=== PATIENT | male | born 1985 | race African-American/Black ===

== ENCOUNTER → 2021-11-22 | Outpatient (CLI) | payer OTHER | END | disposition home or self-care (01) | LOC: RADCTMAIN 11:45 | PROVIDERS: ATTEND Internal Medicine | DX: Z53.9 Procedure and treatment not carried out, unspecified reason (principal) ==

== ENCOUNTER → 2021-12-07 | Outpatient (CLI) | payer OTHER ==
--- NOTE | 2021-12-07 18:44 | CT ---
EXAMINATION TYPE: CT cervical spine w con DATE OF EXAM: 12/07/2021 COMPARISON: None HISTORY: Hx Non-hodgkins lymphoma CT DLP: 412.60 mGycm CONTRAST: Performed with IV Contrast, patient injected with 100 mL of Isovue 300. CT of the cervical spine is performed in the axial plane at 2 mm thick sections. Reconstructed image s in the coronal, and sagittal plane are reviewed on the computer. No acute fractures are evident. Vertebral body alignment is normal. Prevertebral space is normal. Disc heights are preserved. Vertebral body heights are preserved. No spinal canal stenosis is evident No neural foraminal stenosis is evident. IMPRESSIONS: 1. No acute osseous abnormality cervical spine
--- NOTE | 2021-12-07 18:44 | CT ---
EXAMINATION TYPE: CT soft tissue neck w con DATE OF EXAM: 12/07/2021 COMPARISON: None HISTORY: Hx Non-hodgkins lymphoma CT DLP: 412.60 mGycm CONTRAST: Patient injected with 100 mL of Isovue 300. TECHNIQUE: Axial images at 3 mm thick sections. Reconstructed images in the coronal plane and sagitt al plane are reviewed. FINDINGS: Limited CT sections are obtained the lung apices. The lung apices appear clear. CT neck: The torus tubarius and fossa of Rosenmuller are normal. Edi Analyst spaces are normal. Para nasal sinuses and mastoid air cells are clear. Parotid glands appear normal and symmetrical. Submandibular glands, are normal. Scattered small lymph nodes are in the left neck. Small lymph nodes are in the submental space. No en larged submandibular or submental lymph nodes are evident. No suspicious jugulodigastric or carotid s eric lymph nodes are present. A few small lymph nodes are at these levels. Parapharyngeal spaces jamir ear clear. The hypopharynx appears within normal limits. Vocal cord level appear symmetrical. There is a 1.0 cm hypodense area within the lateral left thyroid lobe. Additional evaluation with ult rasound is recommended. IMPRESSIONS: 1. No suspicious enlarged lymphadenopathy.
--- NOTE | 2021-12-07 18:48 | CT ---
EXAMINATION TYPE: CT thor lumbar spine w con DATE OF EXAM: 12/07/2021 COMPARISON: None HISTORY: Hx Non-hodgkins lymphoma CT DLP: 896.50 mGycm Automated exposure control for dose reduction was used. Contrast: None Technique: Axial images 2 mm thick sections. Reconstructed images in the coronal and sagittal planes. Images were obtained through the thoracic and lumbar spine FINDINGS: At the L3 level there is some lucency with ill-defined margins within the right lateral aspect of the vertebral body. Some posterior left pedicle and transverse process junction lucency may be present a s well. Lytic lesions at this level are not excluded. Consider additional evaluation with MRI lumbar spine with attention to L3. There may be some lucency within the medial left iliac wing adjacent to the sacroiliac joint. Example image series 5 image 246. This may be further evaluated with MRI of the lumbar spine some lucency is within the medial left sacral alar, series 5 image 259. Disc heights appear preserved. Vertebral body heights are preserved. Alignment appears normal. No spi nal canal stenosis is evident. IMPRESSION: 1. THERE IS SOME LUCENCY WITHIN THE LEFT SACRAL ALAR, LEFT MEDIAL ILIAC WING, AND THE L3 VERTEBRAL JACQUELINE DY AND TRANSVERSE PROCESS DISCUSSED ABOVE. LYTIC LESIONS AT THESE LEVELS ARE NOT EXCLUDED. ADDITIONAL EVALUATION WITH MRI OF THE LUMBAR SPINE IS RECOMMENDED.
--- NOTE | 2021-12-07 18:49 | CT ---
EXAMINATION TYPE: CT ChestAbdPelvis w con DATE OF EXAM: 12/07/2021 INDICATION: Hx Non-hodgkins lymphoma COMPARISON: None CT DLP: 896.50 mGycm CONTRAST: Performed with Oral Contrast and with IV Contrast, patient injected with 100 mL of Isovue 300. TECHNIQUE: Axial images at 5 mm thick sections. Reconstructed images in the coronal plane. Delayed images through the kidneys. FINDINGS: CT CHEST: Portion of the thyroid visualized is normal. No suspicious lung nodules or focal infiltrates are present. No enlarged mediastinal or hilar adenopathy is evident. The ascending aorta diameter at the level of the main pulmonary artery is 2.6 cm. The main pulmonary artery diameter at the bifurcation is 2.3 cm. Small hiatal hernia is present CT ABDOMEN: Liver: Normal Spleen: Normal Pancreas: Normal Adrenal glands: The adrenal glands are normal. Gallbladder: Normal Kidneys: No masses are evident. No hydronephrosis is present. No cysts are present. Delayed images were obtained through the kidneys, which remain unremarkable. Aorta: Normal Inferior vena cava: Normal. CT PELVIS: Loops of bowel within the abdomen and pelvis are normal. Fecal debris is within the sigmoid colon a nd descending colon loops of bowel are nondistended with oral contrast Limited evaluation. Appendix: Not identified. No suspicious dilated tubular structure or inflammatory change is evident. Urinary bladder: Normal. Genitourinary structures: Prostate appears normal Osseous structures: There may be some subtle lytic areas within the L3 vertebral body, left sacral al ar and left medial iliac wing. Please also see CT thoracic and lumbar spine same date. Lymphadenopathy: No enlarged mediastinal or hilar adenopathy is evident. A few small bilateral axilla ry lymph nodes are present. No retrocrural adenopathy. No significant periaortic or retrocaval adenop athy. Obturator canal and iliac chain appears normal. A few scattered small inguinal lymph nodes are present bilaterally. IMPRESSIONS: 1. Small hiatal hernia. 2. No suspicious enlarged lymph nodes. 3. Possible lytic areas within the lumbar spine discussed above. Please also see CT thoracic and lumb ar spine report same date.
== END | disposition home or self-care (01) ==
LOC: RADCTMAIN 11:23
PROVIDERS: ATTEND Internal Medicine
DX: K44.9 Diaphragmatic hernia without obstruction or gangrene (principal); Z85.72 Personal history of non-Hodgkin lymphomas
CPT/HCPCS: 72129; 72126; 72132; 70491; 71260; 74177; Q9967

== ENCOUNTER → 2022-01-03 | Outpatient (CLI) | payer OTHER ==
--- NOTE | 2022-01-04 05:30 | MR ---
EXAMINATION TYPE: MR lumbar spine wo/w con DATE OF EXAM: 01/03/2022 COMPARISON: None HISTORY: Neck pain CONTRAST: Standard multiplanar, multisequence MRI departmental protocol images were obtained without contrast a nd with 7 mL intravenous gadolinium contrast. The lumbar vertebrae have normal alignment. Posterior elements are intact. Disc spaces are normal. No compression fracture. There is no spinal stenosis. Lumbar nerve roots appear normal. The neural fora stacey are widely patent. There is no lumbar paraspinal mass. The sacroiliac joints appear intact. No e vidence of focal bone destruction. No pathologic enhancement. Exam limited by lack of precontrast T1 sagittal images. IMPRESSION: Normal MRI scan of the lumbar spine. I do not see a pattern of metastatic disease in the lumbar spine . Areas of increased signal on the T1 images in the sacrum and lumbar spine are consistent with fatty marrow replacement
== END | disposition home or self-care (01) ==
LOC: RADMRIMAIN 14:17
PROVIDERS: ATTEND Nurse Practitioner Family
DX: M54.50 Low back pain, unspecified (principal)
CPT/HCPCS: 72158; A9585